=== PATIENT | male | born 1955 | race Caucasian/White ===

== ENCOUNTER 2016-08-08 02:38 | Emergency (ER) | payer OTHER, MEDICAID ==
[2016-08-08 02:49] VITALS: TEMP 98.2
[2016-08-08 04:06] LABS: % IMMATURE GRANULYOCYTES 0.5 % (0.0-1.1); ABSOLUTE IMMATURE GRANULOCYTES 0.06 10^3/uL (0.00-0.10); ADD DIFF? NO; ADD MORPH? NO; ADD SCAN? NO; ATYPICAL LYMPHOCYTE FLAG 0 (0-99); FRAGMENT RBC FLAG 0 (0-99); HEMATOCRIT 35.4 % (40.0-51.0); HEMOGLOBIN 11.5 g/dL (13.7-17.5); LEFT SHIFT FLG 0 (0-99); LIPEMIA HEMOLYSIS FLAG 80 (0-99); MEAN CELL HEMOGLOBIN CONCENTR. 32.5 g/dL (32.4-36.7); MEAN CELL VOLUME 86.3 fL (81.5-99.8); MEAN PLATELET VOLUME 9.5 fL (8.7-11.7); PLATELET CLUMPS FLAG 10 (0-99); PLATELET COUNT 222 10^3/uL (150-400); RED CELL DISTRIBUTION WIDTH 14.8 % (11.5-15.2)
[2016-08-08 04:13] LABS: ALANINE AMINOTRANSFERASE 53 IU/L (21-72); ALBUMIN 3.1 g/dL (3.5-5.0); ALKALINE PHOSPHATASE 71 IU/L (38-126); ANION GAP 10 mEq/L (8-16); ASPARTATE AMINOTRANSFERASE 90 IU/L (17-59); BILIRUBIN,TOTAL 0.7 mg/dL (0.1-1.4); CALCIUM 9.3 mg/dL (8.5-10.4); CARBON DIOXIDE 27 mEq/l (22-31); CHLORIDE 103 mEq/L (97-110); CREATININE 0.7 mg/dL (0.7-1.3); GLOMERULAR FILTRATION RATE > 60; GLUCOSE 89 mg/dL (70-100); POTASSIUM 3.7 mEq/L (3.5-5.2); SODIUM 140 mEq/L (134-144)
[2016-08-08] MEDS ORDERED: NS 1,000 ML IV ONE (05:09)
--- NOTE | 2016-08-08 05:14 | EDPHY ---
H & P Stated Complaint: FREQUENT FALLS, NOT EATING, SENT FROM [facility] Time Seen by Provider: 08/08/16 03:51 HPI/ROS: HPI The patient presents with frequent falls with weakness and confusion. He apparently started Levaquin 750 mg daily 3 days ago after he had lab results showing an elevated white blood cell count of 20,000. Urinalysis result is pending. Per his nurse at the snf, the patient normally walks with a shuffling gait, however now he has had about 3 falls when walking. He does not use a cane or a walker. He is less responsive according to her and there have been some fevers recorded at the snf, however not over the last 2 days. He eats a pureed diet, however there is some difficulty swallowing with this. He was brought in by ambulance, after being found on the ground of his snf today. He had a blood glucose of 224. The patient is unable to provide any further history due to mental status. REVIEW OF SYSTEMS Unobtainable secondary to patient's mental status PMHx: [place]'s disease, dysphagia, hypothyroidism Soc Hx: Lives at [place] PHYSICAL General Appearance: Alert, no distress, cachetic Eyes: Pupils equal and round no pallor or injection ENT, Mouth: Mucous membranes moist Respiratory: There are no retractions, lungs are clear to auscultation Cardiovascular: Regular rate and rhythm Gastrointestinal: Abdomen is soft and non-tender, no masses, bowel sounds normal Neurological: A&O, moves all extremities Skin: Warm and dry, no rashes Musculoskeletal: Neck is supple non tender Extremities: symmetrical, full range of motion Psychiatric: There is no agitation Source: Patient - Personal History Current Tetanus/Diphtheria Vaccine: Yes Current Tetanus Diphtheria and Acellular Pertussis (TDAP): Yes - Medical/Surgical History Hx Asthma: No Hx Chronic Respiratory Disease: No Hx Diabetes: Yes Hx Cardiac Disease: No Hx Renal Disease: No Hx Cirrhosis: No Hx Alcoholism: No Hx HIV/AIDS: No Hx Splenectomy or Spleen Trauma: No Other PMH: hypothyroid, DM, connie's disease, dysphagia, depression, muscle weakness - Social History Smoking Status: Never smoked Constitutional: Initial Vital Signs Temperature (C) 36.8 C 08/08/16 02:40 Heart Rate 94 08/08/16 02:40 Respiratory Rate 20 08/08/16 02:40 Blood Pressure 99/67 L 02/18/17 02:40 O2 Sat (%) 92 08/08/16 02:40 O2 Delivery Mode Room Air Allergies/Adverse Reactions: No Known Allergies Allergy (Unverified 08/08/16 02:49) Home Medications: Medication Instructions Recorded Baclofen [Baclofen 10 mg (*)] 10 mg PO 0800,1100,2100 03/10/16 Cetirizine [ZyrTEC 10 mg (*)] 10 mg PO DAILY PRN 03/10/16 Cholecalciferol Vit D3 [Vitamin D3 2,000 units PO DAILY 03/10/16 2000 units tab (OTC)] Cyanocobalamin (Vitamin B-12) 2,000 mcg PO DAILY 03/10/16 [Vitamin B-12] Donepezil HCl [Aricept] 10 mg PO HS 03/10/16 Levothyroxine [Synthroid 88 mcg 88 mcg PO DAILY10 03/10/16 (*)] Memantine HCl [Namenda Xr] 28 mg PO DAILY 03/10/16 Helena-3 Fatty Acids [Fish Oil 1000 1,000 mg PO HS 03/10/16 mg (*)] Sertraline HCl [Zoloft 50mg (*)] 50 mg PO DAILY 03/10/16 Tetrabenazine [Xenazine] 25 mg PO BID 03/10/16 Haloperidol [Haldol 1 MG (*)] 1 - 2 mg PO Q6 PRN #0 tab 03/12/16 risperiDONE [Risperdal 0.25mg (*)] 0.25 mg PO HS #0 tab 03/12/16 Medical Decision Making - Diagnostics Imaging: Chest x-ray two view shows no infiltrate, interpreted by me, radiology interpretation is pending. CT head non con, discussed with Dr. Phelps of Radiology: Low attenuation is noted in the white matter bilaterally, likely due to age-related small vessel ischemic changes. Otherwise, attenuation of the brain parenchyma appears normal , with no evidence for hemorrhage, mass, or midline shift. Diffuse atrophy with somewhat more prominent ventricular dilitataion. The visualized portions of the paranasal sinuses, mastoids, orbits, and calvarium appear unremarkable. ED Course/Re-evaluation: In the emergency room, the patient was given 1 L of normal saline intravenously given his elevated BUN and history of decreased p.o. intake according to his snf. Basic labs were checked and were unremarkable, white blood cell count is now 12,000 from reported 20,000 a few days ago. BUN is elevated, which appears to be due to pre renal azotemia. CT scan was ordered which showed no acute findings. Chest x-ray was normal demonstrating no infection. Patient was unable to provide a urine specimen while he is here. I suspect he has a partially treated urinary tract infection after several days of levofloxacin which she was given for fever and leukocytosis. He could also have worsening of his [place]'s disease, specifically chorea. UA and culture is currently pending at the patient's snf thus I do not feel strongly compelled to check a urine here. The patient was hungry, able to tolerate Jell-O. He will be discharged back to his snf this morning. Differential Diagnosis: This is a 61-year-old male from [place] of the [facility] with history of San [place]'s disease, who presents brought in by ambulance for frequent falls over the last several days. It seems he is currently being treated for some sort of infection with Levaquin and I wonder if this is contributing to his symptoms. Differential diagnosis includes electrolyte disturbance, dehydration, closed head injury, infection. - Data Points Laboratory Results: Laboratory Results 08/08/16 03:45 08/08/16 03:45 08/08/16 08/08/16 03:45 03:45 WBC 12.39 10^3/uL H 10^3/uL (3.80-9.50) RBC 4.10 10^6/uL L 10^6/uL (4.40-6.38) Hgb 11.5 g/dL L g/dL (13.7-17.5) Hct 35.4 % L % (40.0-51.0) MCV 86.3 fL fL (81.5-99.8) MCH 28.0 pg pg (27.9-34.1) MCHC 32.5 g/dL g/dL (32.4-36.7) RDW 14.8 % % (11.5-15.2) Plt Count 222 10^3/uL 10^3/uL (150-400) MPV 9.5 fL fL (8.7-11.7) Neut % (Auto) 86.0 % H % (39.3-74.2) Lymph % (Auto) 5.8 % L % (15.0-45.0) Gentry % (Auto) 5.1 % % (4.5-13.0) Eos % (Auto) 2.4 % % (0.6-7.6) Baso % (Auto) 0.2 % L % (0.3-1.7) Nucleat RBC Rel Count 0.0 % % (0.0-0.2) Absolute Neuts (auto) 10.66 10^3/uL H 10^3/uL (1.70-6.50) Absolute Lymphs (auto) 0.72 10^3/uL L 10^3/uL (1.00-3.00) Absolute Monos (auto) 0.63 10^3/uL 10^3/uL (0.30-0.80) Absolute Eos (auto) 0.30 10^3/uL 10^3/uL (0.03-0.40) Absolute Basos (auto) 0.02 10^3/uL 10^3/uL (0.02-0.10) Absolute Nucleated RBC 0.00 10^3/uL 10^3/uL (0-0.01) Immature Gran % 0.5 % % (0.0-1.1) Immature Gran # 0.06 10^3/uL 10^3/uL (0.00-0.10) Sodium 140 mEq/L mEq/L (134-144) Potassium 3.7 mEq/L mEq/L (3.5-5.2) Chloride 103 mEq/L mEq/L (97-110) Carbon Dioxide 27 mEq/l mEq/l (22-31) Anion Gap 10 mEq/L mEq/L (8-16) BUN 28 mg/dL H mg/dL (7-23) Creatinine 0.7 mg/dL mg/dL (0.7-1.3) Estimated GFR > 60 Glucose 89 mg/dL mg/dL (70-100) Calcium 9.3 mg/dL mg/dL (8.5-10.4) Total Bilirubin 0.7 mg/dL mg/dL (0.1-1.4) AST 90 IU/L H IU/L (17-59) ALT 53 IU/L IU/L (21-72) Alkaline Phosphatase 71 IU/L IU/L (38-126) Total Protein 6.0 g/dL L g/dL (6.3-8.2) Albumin 3.1 g/dL L g/dL (3.5-5.0) Medications Given: Discontinued Medications Sodium Chloride (Ns) 1,000 mls @ 0 mls/hr IV ONCE ONE PRN Reason: Wide Open Stop: 08/08/16 05:10 Last Admin: 08/08/16 05:19 Dose: 1,000 mls Departure - Departure Disposition: Home, Routine, Self-Care Clinical Impression: Falls, [place]'s disease Condition: Fair Instructions: Fall Prevention (ED) Additional Instructions: It is unclear exactly what is causing this patient's frequent falls. His testing today was all relatively normal. His white blood cell count was 12. I recommend you continue the full course of antibiotics. Please follow-up on the urine testing. Referrals: ENID MEI [Primary Care Provider] - As per Instructions
[2016-08-08 08:00] VITALS: BP 104/69; PULSE 90; RESP 16; O2SAT 95
== END 2016-08-08 08:00 | disposition home or self-care (01) ==
LOC: EDUNIT#
DX: G10 Huntington's disease (principal); E11.9 Type 2 diabetes mellitus without complications; W19.XXXA Unspecified fall, initial encounter; Y99.8 Other external cause status; Y93.01 Activity, walking, marching and hiking

== ENCOUNTER 2016-09-20 18:41 | Inpatient (IN) | payer OTHER, MEDICAID ==
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
[2016-09-20 19:21] LABS: ADD DIFF? YES; ADD MORPH? NO; ADD SCAN? NO; ATYPICAL LYMPHOCYTE FLAG 0 (0-99); FRAGMENT RBC FLAG 0 (0-99); HEMATOCRIT 35.7 % (40.0-51.0); HEMOGLOBIN 11.9 g/dL (13.7-17.5); LEFT SHIFT FLG 0 (0-99); LIPEMIA HEMOLYSIS FLAG 80 (0-99); MEAN CELL HEMOGLOBIN 28.8 pg (27.9-34.1); MEAN CELL HEMOGLOBIN CONCENTR. 33.3 g/dL (32.4-36.7); MEAN CELL VOLUME 86.4 fL (81.5-99.8); MEAN PLATELET VOLUME 9.2 fL (8.7-11.7); PLATELET CLUMPS FLAG 0 (0-99); PLATELET COUNT 302 10^3/uL (150-400); RED BLOOD CELL COUNT 4.13 10^6/uL (4.40-6.38); RED CELL DISTRIBUTION WIDTH 15.9 % (11.5-15.2)
[2016-09-20 19:35] LABS: ANION GAP 16 mEq/L (8-16); CALCIUM 9.7 mg/dL (8.5-10.4); CARBON DIOXIDE 25 mEq/l (22-31); CHLORIDE 101 mEq/L (97-110); CREATININE 0.7 mg/dL (0.7-1.3); ETHANOL SERUM < 10 mg/dL (0-10); GLOMERULAR FILTRATION RATE > 60; GLUCOSE 148 mg/dL (70-100); POTASSIUM 3.9 mEq/L (3.5-5.2); SODIUM 142 mEq/L (134-144)
[2016-09-20 19:44] LABS: MICROCYTES 1+; PLATELET ESTIMATE ADEQUATE (ADEQ)
[2016-09-20] MEDS ORDERED: LORazepam 1 MG TAB PO ONE ×2 (21:56→22:17)
[2016-09-20] MEDS ORDERED: LORazepam 1 MG TAB ONE (22:10)
[2016-09-20] MEDS ORDERED: QUEtiapine FUMARATE 100 MG TAB PO ONE (22:21)
[2016-09-20] MEDS ORDERED: ACETAMINOPHEN 325 MG TAB PO PRN (22:47)
[2016-09-20] MEDS ORDERED: ONDANSETRON 4 MG/2 ML VIAL IVP PRN (22:47)
[2016-09-20] MEDS ORDERED: ONDANSETRON DISINTEGRATING 4 MG TAB PO PRN (22:47)
[2016-09-20] MEDS ORDERED: D50W 25 GM/50 ML SYR IVP PRN (22:57)
[2016-09-20 23:04] LABS: COLOR YELLOW; LEUKOCYTE ESTERASE,URINE NEGATIVE (NEGATIVE); NITRITE,URINE NEGATIVE (NEGATIVE)
[2016-09-20] MEDS ORDERED: HALOPERIDOL LACT 5 MG/ML INJ IVP PRN (23:08)
[2016-09-20] MEDS ORDERED: NS 1,000 ML IV SCH (23:15)
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
[2016-09-21] MEDS: QUEtiapine FUMARATE 100 MG TAB PO SCH ×2 (01:18→22:38)
[2016-09-21 08:51] LABS: % IMMATURE GRANULYOCYTES 0.2 % (0.0-1.1); ABSOLUTE IMMATURE GRANULOCYTES 0.03 10^3/uL (0.00-0.10); ADD DIFF? NO; ADD MORPH? NO; ADD SCAN? NO; ATYPICAL LYMPHOCYTE FLAG 10 (0-99); FRAGMENT RBC FLAG 0 (0-99); HEMATOCRIT 35.9 % (40.0-51.0); HEMOGLOBIN 11.6 g/dL (13.7-17.5); LEFT SHIFT FLG 0 (0-99); LIPEMIA HEMOLYSIS FLAG 80 (0-99); MEAN CELL HEMOGLOBIN 27.9 pg (27.9-34.1); MEAN CELL HEMOGLOBIN CONCENTR. 32.3 g/dL (32.4-36.7); MEAN CELL VOLUME 86.3 fL (81.5-99.8); MEAN PLATELET VOLUME 9.3 fL (8.7-11.7); PLATELET CLUMPS FLAG 0 (0-99); PLATELET COUNT 239 10^3/uL (150-400); RED BLOOD CELL COUNT 4.16 10^6/uL (4.40-6.38); RED CELL DISTRIBUTION WIDTH 16.1 % (11.5-15.2)
[2016-09-21] MEDS: DIVALPROEX ER 500 MG TAB PO SCH (09:00)
[2016-09-21] MEDS: INSULIN LISPRO 100 UNIT/ML SC SCH ×3 (09:22→17:13)
[2016-09-21 09:23] LABS: ANION GAP 12 mEq/L (8-16); CALCIUM 9.6 mg/dL (8.5-10.4); CARBON DIOXIDE 24 mEq/l (22-31); CHLORIDE 105 mEq/L (97-110); CREATININE 0.6 mg/dL (0.7-1.3); GLOMERULAR FILTRATION RATE > 60; GLUCOSE 90 mg/dL (70-100); POTASSIUM 4.1 mEq/L (3.5-5.2); SODIUM 141 mEq/L (134-144)
[2016-09-21] MEDS: LEVOTHYROXINE 88 MCG TAB PO SCH (10:47)
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
--- NOTE | 2016-09-21 19:32 | GCON ---
[f rep st] CONSULTATION INPATIENT CONSULTATION NOTE DATE OF CONSULTATION: 09/21/2016 REFERRING PHYSICIAN: Tiffanie Kramer MD CHIEF COMPLAINT: Sparta disease with increasing aggression. HISTORY OF PRESENT ILLNESS: Dr. Kramer, of the hospitalist service, consulted Neurology for evalua tion of the patient's worsening aggression. Results of the evaluation are placed in the EMR for revi ew. This is a 61-year-old male with a history of Yasmeen disease with chorea and associated aggressio n. He lives at [place], but was noted to have increasing aggression, so he was brought to [facility] for evaluation and treatment. He is currently on Depakote and Seroquel. He had a s imilar episode in February 2016 for which case he was brought to the hospital, and under psychiatri c care was stabilized and then returned to [place] for which he has done well until now. Since be ing hospitalized, he has been much better, more calm. Currently denies any complaints. PAST MEDICAL HISTORY: Yasmeen chorea, diabetes, hypothyroidism, depression, dysphagia. ALLERGIES: No known drug allergies. FAMILY HISTORY: Unclear, although he likely is positive for Sparta chorea. SOCIAL HISTORY: Lives at [place]. REVIEW OF SYSTEMS: 10-point review of systems is negative except for what was placed in the HPI. PHYSICAL EXAM: VITAL SIGNS: Blood pressure 129/78, heart rate 91, respirations 19, saturating 100% on room air. Temperature 36.6 degrees Celsius. GENERAL: No acute distress. EYES: Funduscopic exam _ . LUNGS: Clear to auscultation bilaterally. No rhonchi or rales. HEART: Regular rate and r hythm. No murmurs. No carotid bruits auscultated. NEUROLOGIC: Mental status: Alert and oriented to p erson and date, but not location. He clearly has significant cognitive problems, as he has problems answering anything but simple questions or anything beyond 2-step commands. Memory appears slightly impaired. Attention intact. Language function appears normal. Fund of knowledge appears decreased. C ranial nerves: Pupils equal, round, react to light. Visual boyce full to confrontation. Extraocular muscles intact. Bilateral face intact to sensation and motor movement. Hearing intact to conversati on. Uvula raises symmetrically. Tongue protrudes midline. Traps 5/5 strength. Motor exam: He has cho shameka-like movements of his head, neck, arms at times. Tone normal all 4 extremities. Strength appears symmetric in all 4 extremities. There is no focal weakness I can detect. Strength testing is compli cated by his cognitive challenges. Sensory exam: All 4 extremities intact to light touch. Reflexes: Bilateral biceps, brachioradialis, patellas are 2/4. Coordination: Bilateral rapid alternating move ments are normal except for having associated chorea. Gait deferred. LABS: September 21, 2016, the CBC shows a white blood cell count of 12.3, hematocrit 35.9. Chemistry wit h a creatinine of 0.6. UA negative. Valproate level 14.3, low. Radiology September 20, 2016: Head CT casey ws no acute changes. I personally visualized this study. ASSESSMENT: 1. 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 2. Resolving pneumonia. RECOMMENDATIONS: 1. Agree with plan to consult Psychiatry. There is no disease-modifying therapy for Sparta dise ase. Treatment is based on symptomatic management. His chorea is not a major problem, but it appears he had a bout of aggression at [place]. He is currently on valproate, but it is subtherapeutic. I am not sure if Psychiatry has a certain level they would aim for, but possibly increasing Depakote to 500 twice a day, aiming for a valproate level of 50 to 100 may help with mood stabilization base d on psychiatric goals. Seroquel 100 mg q.h.s. certainly seems appropriate as well. He certainly see ms in a much better state at this time. 2. No further neurologic workup needed at this time. If Psychiatry is consulted and has any additio nal neurologic questions or any new neurologic issues arise, I would be happy to become re-involved. At this time, I would focus primarily on psychiatric medication management to treat his symptomatic Sparta related aggression. His chorea is currently not a problem. No further neurologic workup needed, and neurologist will sign off. /[id number]/MODL
[2016-09-21] MEDS ORDERED: DIVALPROEX ER 500 MG TAB PO ONE (22:54)
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
[2016-09-22] MEDS: INSULIN LISPRO 100 UNIT/ML SC SCH ×2 (09:32→12:29)
[2016-09-22] MEDS: DIVALPROEX ER 500 MG TAB PO SCH (11:35)
[2016-09-22] MEDS: LEVOTHYROXINE 88 MCG TAB PO SCH (11:36)
[2016-09-22 11:42] VITALS: BP 98/63; PULSE 100; RESP 20; TEMP 98.6; O2SAT 95
--- NOTE | 2016-09-22 12:54 | PDIAF ---
- Diagnosis Diagnosis: connie's chorea - Medication Management Discharge Medications: Medications to Continue on Transfer Cyanocobalamin (Vitamin B-12) [Vitamin B-12] 2,000 mcg PO DAILY 03/10/16 [Last Taken 03/09/16] Levothyroxine [Synthroid 88 mcg (*)] 88 mcg PO DAILY10 03/10/16 [Last Taken ] [place]-3 Fatty Acids [Fish Oil 1000 mg (*)] 1,000 mg PO DAILY 03/10/16 [Last Taken 03/08/16] Cholecalciferol Vit D3 [Vitamin D3 (*)] 50,000 unit PO Q30D 09/20/16 [Last Taken 09/19/16] Divalproex ER [Depakote ER 500 MG (*)] 500 mg PO DAILY 09/20/16 [Last Taken Unknown] Herbals/Supplements -Info Only 1 ea PO DAILY 09/20/16 [Last Taken Unknown] QUEtiapine FUMARATE [Seroquel 100 mg (*)] 100 mg PO DAILY 09/20/16 [Last Taken Unknown] Discharge Medications: Refer to the Discharge Home Medication list for PRN reason. - Follow Up Care Current Providers and Referrals: Patient,NotPresent [Primary Care Provider] - As per Instructions
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
== END 2016-09-22 14:23 | DRG 57 ==
LOC: EDUNIT# → INTOOBSV 21:58 → F3E 09-21 00:59 → OBSVTOIN 09-21 11:29
PROVIDERS: ADMIT Hospitalist; ATTEND Internal Medicine
DX: G10 Huntington's disease (principal); R45.1 Restlessness and agitation; E11.9 Type 2 diabetes mellitus without complications; E03.9 Hypothyroidism, unspecified
CPT/HCPCS: 80305; 97161-GP; 97165-GO; G0378; G0480; G8978-GP-CI; G8979-GP-CI; G8980-GP-CI; G8987-GO-CJ; G8988-GO-CJ; G8989-GO-CJ

== ENCOUNTER 2017-11-19 07:58 | Emergency (ER) | payer OTHER, MEDICAID ==
[2017-11-19] MEDS ORDERED: NS 500 ML IV ONE (08:13)
--- NOTE | 2017-11-19 08:13 | CPEKG ---
Heart Rate: 68 RR Interval: 882 P-R Interval: 180 QRSD Interval: 100 QT Interval: 432 QTC Interval: 460 P [place]: 69 QRS [place]: -3 T Wave [place]: 42 EKG Severity - NORMAL ECG - EKG Impression: SINUS RHYTHM Electronically Signed By: Sachin Alonso 19-Nov-2017 11:07:32
[2017-11-19 08:20] LABS: PLATELET COUNT 257 10^3/uL (150-400)
[2017-11-19 08:28] LABS: INR 0.96 (0.83-1.16)
[2017-11-19 08:36] LABS: CREATINE KINASE 75 IU/L (0-224)
--- NOTE | 2017-11-19 08:36 | EDPHY ---
H & P Time Seen by Provider: 11/19/17 08:12 HPI/ROS: HPI Cough, chest pain. 62-year-old male by ambulance from [facility]. Patient developed a cough last night at 2:30 a.m.. Then was complaining to staff about chest pain at 6:00 a.m. Which he reported was associated with his cough through the night. He is not a complainer according to the staff. No other history obtainable. The patient denies any chest pain here in the emergency department. Patient given 324 mg of chewed aspirin by EMS. ROS: Constitutional: No fever, no chills. No weakness. Eyes: No discharge. No changes in vision. ENT: No sore throat. No nasal congestion or rhinorrhea. Respiratory: As. No shortness of breath. Cardiac: As above, no palpitations. Gastrointestinal: No abdominal pain, no vomiting, no diarrhea. Genitourinary: No hematuria. No dysuria or increased frequency with urination. Musculoskeletal: No back pain. No neck pain. No myalgias or arthralgias. Skin: No rashes. Neurological: No headache. No focal weakness or altered sensation. Review of systems obtained from intermediate staff report and patient. Past medical history: Hypothyroidism, diabetes mellitus, [place]'s disease, dysphagia, depression, muscle weakness, dementia. Social history: Nonsmoker. No alcohol. From intermediate. Physical Exam: General Appearance: Alert, no distress. This patient appears generally well- hydrated and well-nourished. Eyes: Pupils equal and round no pallor or injection. No lid edema, erythema or injection. ENT, Mouth: Mucous membranes are moist. Respiratory: There are no retractions, lungs are clear to auscultation anteriorly with good air movement bilaterally. Cardiovascular: Regular rate and rhythm. No murmur appreciated. Gastrointestinal: Abdomen is soft and nontender, no masses, bowel sounds normal. No focal tenderness at McBurney's point. No Amos sign. Neurological: Motor sensory function is grossly is at baseline. Skin: Warm and dry, no rashes. Musculoskeletal: Neck is supple and nontender. Extremities are symmetrical. All joints range without pain or impingement. Psychiatric: No agitation. No depression. Database: EKG: EKG time is 8:10 p.m.; EKG shows a narrow complex normal sinus rhythm with a ventricular rate of 68. The [place], QRS, QT intervals are within normal limits. There are no ST-T wave changes indicative of ischemic or injury pattern. No evidence of right heart strain. Interpreted by me. Imaging: Chest x-ray PA and lateral; the cardiac mediastinal silhouette is unremarkable. No evidence of infiltrate or pneumothorax. No acute cardiopulmonary disease process noted. Interpreted by me. CT angiogram of chest: No pulmonary embolism. No pneumonia. No dissection. Esophagus is noted to be mildly thickened. No other abnormality. Results were discussed with staff radiologist Dr. Shivam Neville. Procedures: Emergency department course: IV placed. Patient placed on a equipment monitor phototypesetting. EKG obtained and reviewed by myself. Vital signs reviewed and are normal. The patient was given 324 mg of chewed aspirin by EMS. 9:30 a.m., patient currently chest pain-free. Initial troponin is normal. D- dimer was elevated. CT of chest will be obtained. 10:30 a.m., patient re-evaluated. Resting comfortably at this time. His workup has been essentially unremarkable. I am not sure of the significance of his thickened esophagus given his history of dysphagia and neurologic disease. At this time I feel he is safe for discharge back to the intermediate. I will have the staff follow him up through his primary care physician and gastroenterology consultation can be obtained for endoscopy and evaluation of his esophagus as needed. I feel that pulmonary embolism, pneumonia and a cardiac etiology of his cough and chest discomfort are unlikely. The patient was transferred back to the intermediate in good condition. Differential Diagnosis: The differential diagnosis on this patient includes but is not limited to bronchitis, pneumonia, musculoskeletal chest pain, pulmonary embolism, acute coronary syndrome.. This represents a partial list of diagnoses considered. These considerations are based on history, physical exam, past history, reassessment and diagnostic testing. Smoking Status: Never smoked Constitutional: Initial Vital Signs Temperature (C) 36.8 C 11/19/17 07:58 Heart Rate 73 11/19/17 07:58 Respiratory Rate 20 11/19/17 07:58 Blood Pressure 138/65 H 11/19/17 07:58 O2 Sat (%) 97 11/19/17 07:58 O2 Delivery Mode Room Air Allergies/Adverse Reactions: lactose Allergy (Verified 11/19/17 08:05) Home Medications: Medication Instructions Recorded Cyanocobalamin (Vitamin B-12) 2,000 mcg PO DAILY 03/10/16 [Vitamin B-12] Levothyroxine [Synthroid 88 mcg 88 mcg PO DAILY10 03/10/16 (*)] [place]-3 Fatty Acids [Fish Oil 1000 1,000 mg PO DAILY 03/10/16 mg (*)] Cholecalciferol Vit D3 [Vitamin D3 50,000 unit PO Q30D 09/20/16 (*)] Divalproex ER [Depakote ER 500 MG 500 mg PO DAILY 09/20/16 (*)] Herbals/Supplements -Info Only 1 ea PO DAILY 09/20/16 QUEtiapine FUMARATE [Seroquel 100 100 mg PO DAILY 09/20/16 mg (*)] Medical Decision Making - Diagnostics Imaging Results: Imaging Impressions Chest X-Ray 11/19/17 08:09 Impression: No acute pulmonary disease. Chest/Thorax CTA 11/19/17 09:36 Impression: 1. No definite pulmonary thromboemboli. 2. No aortic aneurysm or dissection. 3. No acute pneumonia, pleural effusion or pneumothorax. 4. Mild diffuse thickening of the distal esophagus, which may represent esophagitis, but is nonspecific. Recommend follow-up GI consult and consider upper endoscopy correlation. Findings and recommendations discussed with Emergency Department physician, Dr. Sachin Alonso at 1025 hours on November 19, 2017. Final report concurs with initial preliminary interpretation. - Data Points Laboratory Results: Laboratory Results 11/19/17 07:50 11/19/17 07:50 11/19/17 11/19/17 11/19/17 07:50 07:50 07:50 WBC 9.54 10^3/uL H 10^3/uL (3.80-9.50) RBC 5.54 10^6/uL 10^6/uL (4.40-6.38) Hgb 15.3 g/dL g/dL (13.7-17.5) Hct 46.7 % % (40.0-51.0) MCV 84.3 fL fL (81.5-99.8) MCH 27.6 pg L pg (27.9-34.1) MCHC 32.8 g/dL g/dL (32.4-36.7) RDW 15.1 % % (11.5-15.2) Plt Count 257 10^3/uL 10^3/uL (150-400) MPV 9.2 fL fL (8.7-11.7) Neut % (Auto) 60.4 % % (39.3-74.2) Lymph % (Auto) 25.2 % % (15.0-45.0) [place] % (Auto) 8.1 % % (4.5-13.0) Eos % (Auto) 5.6 % % (0.6-7.6) Baso % (Auto) 0.6 % % (0.3-1.7) Nucleat RBC Rel Count 0.0 % % (0.0-0.2) Absolute Neuts (auto) 5.77 10^3/uL 10^3/uL (1.70-6.50) Absolute Lymphs (auto) 2.40 10^3/uL 10^3/uL (1.00-3.00) Absolute Monos (auto) 0.77 10^3/uL 10^3/uL (0.30-0.80) Absolute Eos (auto) 0.53 10^3/uL H 10^3/uL (0.03-0.40) Absolute Basos (auto) 0.06 10^3/uL 10^3/uL (0.02-0.10) Absolute Nucleated RBC 0.00 10^3/uL 10^3/uL (0-0.01) Immature Gran % 0.1 % % (0.0-1.1) Immature Gran # 0.01 10^3/uL 10^3/uL (0.00-0.10) PT 13.0 SEC SEC (12.0-15.0) INR 0.96 (0.83-1.16) APTT 28.8 SEC SEC (23.0-38.0) D-Dimer 1.65 ug/mLFEU H ug/mLFEU (0.00-0.50) Sodium 144 mEq/L mEq/L (135-145) Potassium 4.7 mEq/L mEq/L (3.3-5.0) Chloride 99 mEq/L mEq/L (97-110) Carbon Dioxide 31 mEq/l mEq/l (22-31) Anion Gap 14 mEq/L mEq/L (8-16) BUN 16 mg/dL mg/dL (7-23) Creatinine 0.8 mg/dL mg/dL (0.7-1.3) Estimated GFR > 60 Glucose 103 mg/dL H mg/dL (70-100) Calcium 10.1 mg/dL mg/dL (8.5-10.4) Creatine Kinase 75 IU/L IU/L (0-224) CK-MB (CK-2) Fraction 2.14 ng/mL ng/mL (0.00-3.19) Troponin I < 0.012 ng/mL ng/mL (0.000-0.034) Medications Given: Discontinued Medications Sodium Chloride (Ns) 500 mls @ 1,000 mls/hr IV EDNOW ONE PRN Reason: Protocol Stop: 11/19/17 08:42 Last Admin: 11/19/17 08:30 Dose: 500 mls Departure - Departure Disposition: Home, Routine, Self-Care Clinical Impression: Chest pain, Cough Condition: Good Instructions: Chest Pain (ED), Acute Cough (ED) Additional Instructions: Read and follow provided instructions. The patient's cardiac workup including EKG, troponin and CT angiogram of his chest were unremarkable. The patient is to follow up with his primary care physician this evening or on Wednesday. His CT scan of his chest was significant for a thickening of his esophagus. Given his history of neurologic disease as well as dysphagia I am not sure of the significance of this. However, endoscopy should be considered for further evaluation. Continue his medication as prescribed Return the patient to the emergency department for complaint of chest pain, difficulty breathing or other serious concerns. Referrals: LAKEISHA NAIR [Primary Care Provider] - As per Instructions
[2017-11-19] MEDS ORDERED: IOPAMIDOL (ISOVUE 370) 100 ML BTL IV ONE (09:45)
[2017-11-19 11:12] VITALS: BP 124/70
== END 2017-11-19 11:16 | disposition home or self-care (01) ==
LOC: EDUNIT#
DX: R07.9 Chest pain, unspecified (principal); R05 Cough; E86.9 Volume depletion, unspecified; E11.9 Type 2 diabetes mellitus without complications
CPT/HCPCS: 71046; 71275; 93005; 96360; 99285; Q9967

== ENCOUNTER 2018-02-10 08:57 | Emergency (ER) | payer OTHER, MEDICAID ==
--- NOTE | 2018-02-10 09:02 | EDPHY ---
H & P Time Seen by Provider: 02/10/18 09:01 HPI/ROS: CHIEF COMPLAINT: Aggressive behavior HISTORY OF PRESENT ILLNESS: History of Casper's chorea is at [place] and was getting increasingly more agitated today. Received 5 mg Haldol by EMS, had a normal pre-hospital glucose, is calm on arrival. At 1 point he did fall and has a forehead hematoma. There was no report of gastrointestinal symptoms or change in medications. Patient really can't give any further history on arrival. REVIEW OF SYSTEMS: Further history and review of systems unavailable because the patient is not really verbal on arrival. PAST MEDICAL HISTORY: Casper's, type 2 diabetes, thyroid Social history: [place] resident General Appearance: Patient is alert and opens his eyes spontaneously but will only intermittently follow commands. Eyes: Pupils 3 mm and reactive. ENT, Mouth: No tongue laceration or abrasion. He will open his mouth when requested. There is a 2 cm central forehead hematoma. Respiratory: Normal respiratory effort, breath sounds equal, lungs are clear to auscultation. Cardiovascular: Regular rate and rhythm. Gastrointestinal: Abdomen is soft and non tender. Neurological: He is able to move all 4 extremities. He will open his mouth and commands. He is able to make sounds but does not really answering questions on arrival. Skin: 1 mm abrasion just proximal to the left great toenail. No other laceration or abrasions noted. Musculoskeletal: No spinal or extremity deformity or tenderness. Psychiatric: Not currently agitated. Emergency Department course/MDM: Patient is calm now. ED screening performed to evaluate for organic causes for his behavioral disturbance separate from his known Casper's. Noncontrast head CT for head trauma forehead hematoma and altered mentation. CBC and chemistries. He was on Depakote in the past but does not appear to be on any medications now which have available laboratory serum levels. 1052: Medically cleared, case management to discuss with June Godfrey regarding disposition. Smoking Status: Never smoked Constitutional: Initial Vital Signs Temperature (C) 36.8 C 02/10/18 09:02 Heart Rate 85 02/10/18 09:02 Respiratory Rate 16 02/10/18 09:02 Blood Pressure 116/78 02/10/18 09:02 O2 Sat (%) 94 02/10/18 09:02 O2 Delivery Mode Room Air Allergies/Adverse Reactions: lactose Allergy (Verified 11/19/17 08:05) Home Medications: Medication Instructions Recorded Cyanocobalamin (Vitamin B-12) 2,000 mcg PO DAILY 03/10/16 [Vitamin B-12] Levothyroxine [Synthroid 88 mcg 88 mcg PO DAILY10 03/10/16 (*)] [place]-3 Fatty Acids [Fish Oil 1000 1,000 mg PO DAILY 03/10/16 mg (*)] Cholecalciferol Vit D3 [Vitamin D3 50,000 unit PO Q30D 09/20/16 (*)] Ativan 0.5 mg 02/10/18 Haldol 10 MG (*) 10 mg 02/10/18 OLANZapine [ZyPREXA 2.5 mg (*)] 02/10/18 Omeprazole Magnesium [Prilosec] 20 mg PO 02/10/18 Tylenol 650 mg PRN 02/10/18 Medical Decision Making - Diagnostics Imaging Results: Imaging Impressions Head CT 02/10/18 09:12 Impression: Advanced atrophy, with no acute intracranial abnormality identified on this unenhanced CT evaluation. If there is further clinical concern regarding the patient's symptoms, MR imaging is suggested, if not otherwise contraindicated. Findings were discussed with BRIGITTE AHMADI MD at 10:30, on 02/10/2018. - Data Points Laboratory Results: Laboratory Results 02/10/18 09:05 02/10/18 09:05 02/10/18 02/10/18 09:05 09:05 WBC 7.06 10^3/uL 10^3/uL (3.80-9.50) RBC 4.67 10^6/uL 10^6/uL (4.40-6.38) Hgb 12.8 g/dL L g/dL (13.7-17.5) Hct 39.3 % L % (40.0-51.0) MCV 84.2 fL fL (81.5-99.8) MCH 27.4 pg L pg (27.9-34.1) MCHC 32.6 g/dL g/dL (32.4-36.7) RDW 14.8 % % (11.5-15.2) Plt Count 198 10^3/uL 10^3/uL (150-400) MPV 9.1 fL fL (8.7-11.7) Neut % (Auto) 57.1 % % (39.3-74.2) Lymph % (Auto) 25.1 % % (15.0-45.0) [place] % (Auto) 7.2 % % (4.5-13.0) Eos % (Auto) 10.2 % H % (0.6-7.6) Baso % (Auto) 0.3 % % (0.3-1.7) Nucleat RBC Rel Count 0.0 % % (0.0-0.2) Absolute Neuts (auto) 4.03 10^3/uL 10^3/uL (1.70-6.50) Absolute Lymphs (auto) 1.77 10^3/uL 10^3/uL (1.00-3.00) Absolute Monos (auto) 0.51 10^3/uL 10^3/uL (0.30-0.80) Absolute Eos (auto) 0.72 10^3/uL H 10^3/uL (0.03-0.40) Absolute Basos (auto) 0.02 10^3/uL 10^3/uL (0.02-0.10) Absolute Nucleated RBC 0.00 10^3/uL 10^3/uL (0-0.01) Immature Gran % 0.1 % % (0.0-1.1) Immature Gran # 0.01 10^3/uL 10^3/uL (0.00-0.10) Sodium 142 mEq/L mEq/L (135-145) Potassium 3.7 mEq/L mEq/L (3.3-5.0) Chloride 106 mEq/L mEq/L (97-110) Carbon Dioxide 27 mEq/l mEq/l (22-31) Anion Gap 9 mEq/L mEq/L (8-16) BUN 13 mg/dL mg/dL (7-23) Creatinine 0.6 mg/dL L mg/dL (0.7-1.3) Estimated GFR > 60 Glucose 93 mg/dL mg/dL (70-100) Calcium 9.0 mg/dL mg/dL (8.5-10.4) Departure - Departure Disposition: Home, Routine, Self-Care Clinical Impression: Casper's chorea Condition: Good Instructions: Haloperidol (By injection) Referrals: LAKEISHA NAIR [Primary Care Provider] - As per Instructions
[2018-02-10 09:20] LABS: PLATELET COUNT 198 10^3/uL (150-400)
[2018-02-10 11:44] VITALS: BP 104/81
== END 2018-02-10 11:52 | disposition home or self-care (01) ==
LOC: EDUNIT#
DX: G10 Huntington's disease (principal); E11.9 Type 2 diabetes mellitus without complications